=== PATIENT | female | born 1980 | race Caucasian/White ===

== ENCOUNTER 2017-05-03 21:42 | Emergency (ER) | payer OTHER ==
[~2017-05-03] VITALS: Ht 180.3 cm; Wt 88.9 kg
[2017-05-03] MEDS ORDERED: CYCLOBENZAPRINE5 MG PO (22:07)
[2017-05-03] MEDS ORDERED: ZOFRAN ODT4 MG PO (22:07)
[2017-05-03] MEDS ORDERED: FIORICET 50-301 EACH PO (22:08)
[2017-05-03] MEDS ORDERED: PRENATAL 19 CH1 EAC1 PO (22:08)
[2017-05-03] MEDS ORDERED: CLINDAMYCIN HC300 MG PO (23:35)
== END 2017-05-03 23:43 | disposition home or self-care (01) ==
LOC: ED 21:42
DX: O99.613 Diseases of the digestive system complicating pregnancy, third trimester (principal); K08.89 Other specified disorders of teeth and supporting structures; O99.513 Diseases of the respiratory system complicating pregnancy, third trimester; J20.9 Acute bronchitis, unspecified; O24.419 Gestational diabetes mellitus in pregnancy, unspecified control; Z88.0 Allergy status to penicillin; Z88.2 Allergy status to sulfonamides; Z88.8 Allergy status to other drugs, medicaments and biological substances; Z79.899 Other long term (current) drug therapy; Z3A.35 35 weeks gestation of pregnancy
CPT/HCPCS: 99283

== ENCOUNTER 2017-05-31 11:44 | Inpatient (IN) | payer OTHER ==
[~2017-05-31] VITALS: Ht 170.2 cm; Wt 90.0 kg
--- OUTSIDE RECORDS SUMMARY | ~2017-05-31 | XMS ---
Demographics + + + | Address | [address] | | | [place] [address] | + + + | Preferred Language | Unknown | + + + | Marital Status | Unknown | + + + | Confucianism Affiliation | Unknown | + + + | Race | Unknown | + + + | Ethnic Group | Unknown | + + + Author + + + | Author | [facility] | + + + | Organization | [facility] | + + + | Address | [address] | | | [place] [address] | + + + | Phone | | + + + Care Team Providers + + + + | Care Marketing Pr Intern Name | Role | Phone | + + + + Unavailable | Unavailable | + + + + PROBLEMS +---------+ + + +--------+ + + | Type | Condition | ICD9-CM | ISL16-XA | Onset | Condition | SNOMED | | | | Code | Code | Dates | Status | Code | +---------+ + + +--------+ + + | Problem | Migraines | | G43.909 | | Active | 89163060 | +---------+ + + +--------+ + + | Problem | Anxiety | | F41.9 | | Active | 63358696 | +---------+ + + +--------+ + + | Problem | Mixed | N39.46 | | | Active | [id number] | | | stress and | | [...] | Z34.90 | | | Active | 45026219 | | | for | | | | | | | | supervisio | | | | | | | | n of | | | | | | | | normal | | | | | | | | | | | | | | +---------+ + + +--------+ + + | Problem | Seizure | | G40.909 | | Active | [id number] | | | disorder | | | | | | +---------+ + + +--------+ + + ALLERGIES Unknown Allergies SOCIAL HISTORY No smoking Hx information available PLAN OF CARE VITAL SIGNS MEDICATIONS Unknown Medications RESULTS No Results PROCEDURES No Known procedures IMMUNIZATIONS No Known Immunizations"
--- OUTSIDE RECORDS SUMMARY | ~2017-05-31 | XMS ---
Demographics + + + | Address | [address] | | | [place] [address] | + + + | Preferred Language | Unknown | + + + | Marital Status | Unknown | + + + | Mormonism Affiliation | Unknown | + + + | Race | Unknown | + + + | Ethnic Group | Unknown | + + + Author + + + | Author | [facility] | + + + | Organization | [facility] | + + + | Address | [address] | | | [place] [address] | + + + | Phone | | + + + Care Team Providers + + + + | Care Recreation Officer Name | Role | Phone | + + + + Unavailable | Unavailable | + + + + PROBLEMS +---------+ + + +--------+ + + | Type | Condition | ICD9-CM | [id number] | Onset | Condition | SNOMED | | | | Code | Code | Dates | Status | Code | +---------+ + + +--------+ + + | Problem | Migraines | | G43.909 | | Active | 23230833 | +---------+ + + +--------+ + + | Problem | Anxiety | | F41.9 | | Active | 49780824 | +---------+ + + +--------+ + + | Problem | Mixed | N39.46 | | | Active | 997143604 | | | stress and | | [...] | Z34.90 | | | Active | 63842034 | | | for | | | | | | | | supervisio | | | | | | | | n of | | | | | | | | normal | | | | | | | | | | | | | | +---------+ + + +--------+ + + | Problem | Seizure | | G40.909 | | Active | [id number] | | | disorder | | | | | | +---------+ + + +--------+ + + ALLERGIES Unknown Allergies SOCIAL HISTORY No smoking Hx information available PLAN OF CARE VITAL SIGNS MEDICATIONS Unknown Medications RESULTS No Results PROCEDURES No Known procedures IMMUNIZATIONS No Known Immunizations"
[~2017-05-31 11:44] MED LIST: CLINDAMYCIN HC300 MG PO; CYCLOBENZAPRINE5 MG PO; FIORICET 50-301 EACH PO; PRENATAL 19 CH1 EAC1 PO; ZOFRAN ODT4 MG PO
== END 2017-06-01 14:20 | disposition home or self-care (01) | DRG 775 ==
LOC: FBCO 11:44 → FBC 12:00 → FBCO 06-08 11:11
PROVIDERS: ADMIT Obstetrics & Gynecology
PROC: 10E0XZZ Delivery of Products of Conception, External Approach (ICD-10-PCS; principal; 2017-05-31)
PROC: 0KQM0ZZ Repair Perineum Muscle, Open Approach (ICD-10-PCS; 2017-05-31)
PROC: 10907ZC Drainage of Amniotic Fluid, Therapeutic from Products of Conception, Via Natural or Artificial Opening (ICD-10-PCS; 2017-05-31)
PROC: 00HU33Z Insertion of Infusion Device into Spinal Canal, Percutaneous Approach (ICD-10-PCS; 2017-05-31)
PROC: 3E0R3CZ (ICD-10-PCS; 2017-05-31)
DX: O70.1 Second degree perineal laceration during delivery (principal); Z37.0 Single live birth; Z3A.38 38 weeks gestation of pregnancy; O24.429 Gestational diabetes mellitus in childbirth, unspecified control
CPT/HCPCS: 01960; 36415; 80053; 82570; 84156; 84550; 85027; 86787; 90707; J2590; J7120

== ENCOUNTER → 2017-07-18 | Emergency (ER) | payer OTHER ==
[~2017-07-18] VITALS: Ht 180.3 cm; Wt 77.1 kg
[~2017-07-18] MED LIST changes: +KEFLEX500 MG PO; +PERCOCET 5-3251 EACH PO
--- OUTSIDE RECORDS SUMMARY | 2017-07-18 20:19 | XMS ---
Demographics + + + | Address | [address] | | | [place] [address] | + + + | Preferred Language | Unknown | + + + | Marital Status | Unknown | + + + | Muslim Affiliation | Unknown | + + + | Race | Unknown | + + + | Ethnic Group | Unknown | + + + Author + + + | Author | [facility] | + + + | Organization | [facility] | + + + | Address | [address] | | | [place] [address] | + + + | Phone | | + + + Care Team Providers + + + + | Care Adult Live In Caregiver Name | Role | Phone | + + + + Unavailable | Unavailable | + + + + PROBLEMS +---------+ + + +--------+ + + | Type | Condition | ICD9-CM | UAS16-RY | Onset | Condition | SNOMED | | | | Code | Code | Dates | Status | Code | +---------+ + + +--------+ + + | Problem | Migraines | | G43.909 | | Active | 40755291 | +---------+ + + +--------+ + + | Problem | Anxiety | | F41.9 | | Active | 90912746 | +---------+ + + +--------+ + + | Problem | Mixed | N39.46 | | | Active | 387545125 | | | stress and | | | | | | | | urge | | | | | | | | urinary | | | | | | | | incontinen | | | | | | | | ce | | | | | | +---------+ + + +--------+ + + | Problem | Encounter | Z34.90 | | | Active | 04708641 | | | for | | | | | | | | supervisio | | | | | | | | n of | | | | | | | | normal | | | | | | | | | | | | | | +---------+ + + +--------+ + + | Problem | Seizure | | G40.909 | | Active | [id number] | | | disorder | | | | | | +---------+ + + +--------+ + + ALLERGIES Unknown Allergies SOCIAL HISTORY No smoking Hx information available PLAN OF CARE VITAL SIGNS MEDICATIONS Unknown Medications RESULTS No Results PROCEDURES No Known procedures IMMUNIZATIONS No Known Immunizations"
--- OUTSIDE RECORDS SUMMARY | 2017-07-18 20:19 | XMS ---
Demographics + + + | Address | [address] | | | [place] [address] | + + + | Preferred Language | Unknown | + + + | Marital Status | Unknown | + + + | Restoration Affiliation | Unknown | + + + | Race | Unknown | + + + | Ethnic Group | Unknown | + + + Author + + + | Author | [facility] | + + + | Organization | [facility] | + + + | Address | [address] | | | [place] [address] | + + + | Phone | | + + + Care Team Providers + + + + | Care Try On Baster Name | Role | Phone | + + + + Unavailable | Unavailable | + + + + PROBLEMS +---------+ + + +--------+ + + | Type | Condition | ICD9-CM | HQE04-RE | Onset | Condition | SNOMED | | | | Code | Code | Dates | Status | Code | +---------+ + + +--------+ + + | Problem | Migraines | | G43.909 | | Active | [id number] | +---------+ + + +--------+ + + | Problem | Anxiety | | F41.9 | | Active | 24176913 | +---------+ + + +--------+ + + | Problem | Seizure | | G40.909 | | Active | 112142033 | | | disorder | | | | | | +---------+ + + +--------+ + + | Problem | Mixed | N39.46 | | | Active | [id number] | | | stress and | | [...]
== END ==
LOC: ED 19:19
DX: K52.9 Noninfective gastroenteritis and colitis, unspecified (principal); Z88.0 Allergy status to penicillin; Z88.2 Allergy status to sulfonamides; Z88.7 Allergy status to serum and vaccine; Z79.899 Other long term (current) drug therapy
CPT/HCPCS: 80053; 81001; 84703; 85025; 96361; 96374; 96375; 96376; 99283; J2270; J2405; J7030

== ENCOUNTER 2017-09-15 16:36 | Emergency (ER) | payer OTHER ==
[~2017-09-15] VITALS: Ht 180.3 cm; Wt 77.1 kg
[~2017-09-15 16:36] MED LIST changes: -KEFLEX500 MG PO; -PERCOCET 5-3251 EACH PO
[2017-09-15] MEDS ORDERED: KEFLEX500 MG PO (17:24)
[2017-09-15] MEDS ORDERED: PERCOCET 5-3251 EACH PO (17:25)
== END 2017-09-15 18:06 | disposition home or self-care (01) ==
LOC: ED 16:36
DX: G43.909 Migraine, unspecified, not intractable, without status migrainosus (principal); Z87.891 Personal history of nicotine dependence; Z90.89 Acquired absence of other organs; Z88.0 Allergy status to penicillin; Z88.2 Allergy status to sulfonamides; Z88.7 Allergy status to serum and vaccine
CPT/HCPCS: 96374; 96375; 99282; J1200; J1885; J2765

== ENCOUNTER 2018-12-09 10:11 | Emergency (ER) | payer OTHER ==
[~2018-12-09] VITALS: Ht 180.3 cm; Wt 77.1 kg
[~2018-12-09 10:11] MED LIST changes: +KEFLEX500 MG PO; +PERCOCET 5-3251 EACH PO
[2018-12-09] MEDS ORDERED: CLEOCIN HCL300 MG PO (10:35)
[2018-12-09] MEDS ORDERED: ULTRAM50 MG PO (11:37)
== END 2018-12-09 12:32 | disposition home or self-care (01) ==
LOC: ED 10:11
DX: K02.9 Dental caries, unspecified (principal); Z88.0 Allergy status to penicillin; Z88.2 Allergy status to sulfonamides; Z88.7 Allergy status to serum and vaccine; Z79.899 Other long term (current) drug therapy
CPT/HCPCS: 96372; 99282-25; J1885

== ENCOUNTER 2018-12-28 19:24 | Emergency (ER) | payer OTHER ==
[~2018-12-28] VITALS: Ht 180.3 cm; Wt 74.8 kg
[~2018-12-28 19:24] MED LIST changes: +CLEOCIN HCL300 MG PO; +ULTRAM50 MG PO
--- OUTSIDE RECORDS SUMMARY | 2018-12-28 19:26 | XMS ---
PreManage Notification: JERMAN CLEMONS Security Quality Assurance Project Manager Events No recent Security Events currently on file CRITERIA MET - PDMP - [facility] - 2 Visits in 30 Days CARE PROVIDERS There are no care providers on record at this time. Livia has no Care Guidelines for this patient. [facility]: Visits indicate total known visits. ED/C VISIT TRACKING (12 MO.) 12/28/2018 19:[address] [facility] TYPE: Emergency COMPLAINT: - VOMITING 12/09/2018 10:[address] [facility] [place] TYPE: Emergency COMPLAINT: - DENTAL PAIN DIAGNOSES: - Other assisted (current) drug therapy - Allergy status to sulfonamides status - Other specified disorders of teeth and supporting structures - Allergy status to serum and vaccine status - Dental caries, unspecified - Allergy status to penicillin INPATIENT VISIT TRACKING (12 MO.) No inpatient visits to display in this time frame [id number]
== END 2018-12-28 21:50 | disposition home or self-care (01) ==
LOC: ED 19:24
DX: K52.9 Noninfective gastroenteritis and colitis, unspecified (principal); Z88.0 Allergy status to penicillin; Z88.2 Allergy status to sulfonamides; Z88.7 Allergy status to serum and vaccine; Z79.899 Other long term (current) drug therapy
CPT/HCPCS: 80053; 81001; 83690; 84703; 85025; 96361; 96374; 99284-25; J2405; J7030

== ENCOUNTER 2019-12-09 17:47 | Emergency (ER) | payer OTHER ==
[~2019-12-09] VITALS: Ht 180.3 cm; Wt 72.6 kg
--- OUTSIDE RECORDS SUMMARY | 2019-12-09 17:52 | XMS ---
PreManage Notification: JERMAN CLEMONS Security Wagon Drill Operator Events No recent Security Events currently on file CRITERIA MET - PDMP CARE PROVIDERS CHAY HEMPHILL Nurse Practitioner: 12/29/2018-Current PHONE: Unknown Livia has no Care Guidelines for this patient. [place] VISIT COUNT (12 MO.) 3 [facility] TOTAL 3 NOTE: Visits indicate total known visits. ED/UCC VISIT TRACKING (12 MO.) 12/09/2019 17:49 [facility] [place] TYPE: Emergency COMPLAINT: - TOOTH PROBLEM (EXTRACTION ON THUR) 12/28/2018 19:24 [facility] [place] TYPE: Emergency COMPLAINT: - VOMITING DIAGNOSES: - Allergy status to penicillin - Other digital photo printer (current) drug therapy - Noninfective gastroenteritis and colitis, unspecified - Allergy status to serum and vaccine status - Allergy status to sulfonamides status - Vomiting, unspecified 12/09/2018 10:11 [facility] [place] TYPE: Emergency COMPLAINT: - DENTAL PAIN DIAGNOSES: - Other half-way (current) drug therapy - Allergy status to sulfonamides status - Other specified disorders of teeth and supporting structures - Allergy status to serum and vaccine status - Dental caries, unspecified - Allergy status to penicillin INPATIENT VISIT TRACKING (12 MO.) No inpatient visits to display in this time frame [id number]
[2019-12-09] MEDS ORDERED: CLINDAMYCIN HC300 MG PO (18:05)
[2019-12-09] MEDS ORDERED: IBUPROFEN800 MG PO (18:05)
[2019-12-09] MEDS ORDERED: PERCOCET 5-3251 EACH PO (18:57)
== END 2019-12-09 19:06 | disposition home or self-care (01) ==
LOC: ED 17:47
DX: G89.18 Other acute postprocedural pain (principal); K08.89 Other specified disorders of teeth and supporting structures; Z88.0 Allergy status to penicillin; Z88.2 Allergy status to sulfonamides; Z88.7 Allergy status to serum and vaccine
CPT/HCPCS: 64400; 99283-25

== ENCOUNTER 2020-08-25 10:07 | Emergency (ER) | payer OTHER ==
[~2020-08-25] VITALS: Ht 180.3 cm; Wt 72.6 kg
[~2020-08-25 10:07] MED LIST changes: +IBUPROFEN800 MG PO
--- OUTSIDE RECORDS SUMMARY | 2020-08-25 10:10 | XMS ---
PreManage Notification: JERMAN CLEMONS Security Benefits Coordinator Events No recent Security Events currently on file CRITERIA MET - PDMP CARE PROVIDERS CHAY HEMPHILL Nurse Practitioner: 12/29/2018-Current PHONE: Unknown Livia has no Care Guidelines for this patient. [place] VISIT COUNT (12 MO.) 2 [facility] Ardon TOTAL 2 NOTE: Visits indicate total known visits. ED/UCC VISIT TRACKING (12 MO.) 08/25/2020 10:08 [facility] [place] TYPE: Emergency COMPLAINT: - TOOTH PAIN 12/09/2019 17:49 [facility] [place] TYPE: Emergency COMPLAINT: - TOOTH PROBLEM (EXTRACTION ON THUR) DIAGNOSES: - Other specified disorders of teeth and supporting structures - Other acute postprocedural pain - Jaw pain - Allergy status to sulfonamides - Allergy status to serum and vaccine - Allergy status to penicillin INPATIENT VISIT TRACKING (12 MO.) No inpatient visits to display in this time frame [id number]
[2020-08-25] MEDS ORDERED: METOPROLOL SUCC50 MG PO (10:24)
[2020-08-25] MEDS ORDERED: KLONOPIN1 MG PO (10:24)
[2020-08-25] MEDS ORDERED: HURRICAINE ONE1 EACH MM (11:24)
[2020-08-25] MEDS ORDERED: CLEOCIN HCL300 MG PO (11:24)
[2020-08-25] MEDS ORDERED: PERCOCET 5-3251 EACH PO (11:24)
== END 2020-08-25 12:20 | disposition home or self-care (01) ==
LOC: ED 10:07
DX: K08.89 Other specified disorders of teeth and supporting structures (principal); Z88.0 Allergy status to penicillin; Z88.2 Allergy status to sulfonamides; Z88.7 Allergy status to serum and vaccine; Z79.899 Other long term (current) drug therapy
CPT/HCPCS: 99282

== ENCOUNTER 2021-12-04 16:21 | Emergency (ER) | payer OTHER ==
[~2021-12-04] VITALS: Ht 180.3 cm; Wt 72.6 kg
[~2021-12-04 16:21] MED LIST changes: +HURRICAINE ONE1 EACH MM; +KLONOPIN1 MG PO; +METOPROLOL SUCC50 MG PO
--- OUTSIDE RECORDS SUMMARY | 2021-12-04 16:24 | XMS ---
PreManage Notification: JERMAN CLEMONS Security Health Insurance Sales Agent Events No recent Security Events currently on file CRITERIA MET - [place] CARE PROVIDERS ELOISE BUSH Internal Medicine 08/26/2020-Current PHONE: Unknown GISELA BALLARD Family [facility] Current PHONE: Unknown CHAY HEMPHILL Nurse Practitioner: 12/29/2018-Current PHONE: Unknown Livia has no Care Guidelines for this patient. [place] VISIT COUNT (12 MO.) 1 [facility] Ardon TOTAL 1 NOTE: Visits indicate total known visits. ED/UCC VISIT TRACKING (12 MO.) 12/04/2021 16:21 [facility] [place] TYPE: Emergency COMPLAINT: - POST OP PROBLEM INPATIENT VISIT TRACKING (12 MO.) No inpatient visits to display in this time frame [id number]
[2021-12-04] MEDS ORDERED: NAPROXEN500 MG PO (16:46)
[2021-12-04] MEDS ORDERED: LISINOPRIL20 MG PO (16:46)
[2021-12-04] MEDS ORDERED: GABAPENTIN300 MG PO (16:46)
== END 2021-12-04 21:11 | disposition home or self-care (01) ==
LOC: ED 16:21
DX: R10.2 Pelvic and perineal pain (principal); G89.18 Other acute postprocedural pain; K59.00 Constipation, unspecified; Z88.0 Allergy status to penicillin; Z88.2 Allergy status to sulfonamides; Z88.7 Allergy status to serum and vaccine; Z79.899 Other long term (current) drug therapy
CPT/HCPCS: 36415; 74177; 80048; 81001; 85025; 99284-25; J1170; J7030

== ENCOUNTER 2022-05-16 08:01 | Emergency (ER) | payer OTHER ==
[~2022-05-16] VITALS: Ht 180.3 cm; Wt 72.6 kg
[~2022-05-16 08:01] MED LIST changes: +GABAPENTIN300 MG PO; +LISINOPRIL20 MG PO; +NAPROXEN500 MG PO
--- OUTSIDE RECORDS SUMMARY | 2022-05-16 08:04 | XMS ---
PreManage Notification: JERMAN CLEMONS Security Live Truck Operator Events No recent Security Events currently on file CRITERIA MET - CLARAP CARE PROVIDERS ELOISE BUSH Internal Medicine 08/26/2020-Current PHONE: Unknown GISELA BALLARD Family [facility] Current PHONE: Unknown CHAY HEMPHILL Nurse Practitioner: 12/29/2018-Current PHONE: Unknown Livia has no Care Guidelines for this patient. [place] VISIT COUNT (12 MO.) 2 JULIAN Ardon TOTAL 2 NOTE: Visits indicate total known visits. ED/UCC VISIT TRACKING (12 MO.) 05/16/2022 08:02 [facility] [place] TYPE: Emergency COMPLAINT: - COUGH 12/04/2021 16:21 [facility] [place] TYPE: Emergency COMPLAINT: - POST OP PROBLEM DIAGNOSES: - Other wrapper hands sprayer (current) drug therapy - Lower abdominal pain, unspecified - Pelvic and perineal pain - Constipation, unspecified - Other acute postprocedural pain - Allergy status to penicillin - Allergy status to serum and vaccine - Allergy status to sulfonamides INPATIENT VISIT TRACKING (12 MO.) No inpatient visits to display in this time frame [id number]
[2022-05-16] MEDS ORDERED: VENTOLIN HFA18 GM INH (08:32)
== END 2022-05-16 08:44 | disposition home or self-care (01) ==
LOC: ED 08:01
DX: B34.9 Viral infection, unspecified (principal); Z20.822 Contact with and (suspected) exposure to COVID-19; Z88.0 Allergy status to penicillin; Z88.7 Allergy status to serum and vaccine; Z88.2 Allergy status to sulfonamides; Z79.899 Other long term (current) drug therapy
CPT/HCPCS: 99283

== ENCOUNTER 2023-01-26 08:29 | Emergency (ER) | payer OTHER ==
[~2023-01-26] VITALS: Ht 180.3 cm; Wt 75.3 kg
[~2023-01-26 08:29] MED LIST changes: +VENTOLIN HFA18 GM INH
--- OUTSIDE RECORDS SUMMARY | 2023-01-26 08:30 | XMS ---
PreManage Notification: JERMAN CLEMONS Security Pellet Press Operator Events No recent Security Events currently on file CRITERIA MET - PDMP CARE PROVIDERS -Uday- Dentist: Lawn Care Technician [facility] PHONE: [phone] ELOISE BUSH Internal Medicine 08/26/2020-Current PHONE: Unknown GISELA BALLARD Family Medicine Current PHONE: Unknown CHAY HEMPHILL Nurse Practitioner: 12/29/2018-Current PHONE: Unknown Livia has no Care Guidelines for this patient. [place] VISIT COUNT (12 MO.) 3 JULIAN Ardon TOTAL 3 NOTE: Visits indicate total known visits. ED/UCC VISIT TRACKING (12 MO.) 01/26/2023 08:29 [facility] [place] TYPE: Emergency COMPLAINT: - R FOOT PAIN 06/21/2022 13:23 [facility] [place] TYPE: Emergency COMPLAINT: - COLD SYMPTOMS 05/16/2022 08:02 [facility] [place] TYPE: Emergency COMPLAINT: - COUGH DIAGNOSES: - Allergy status to penicillin - Allergy status to sulfonamides - Viral infection, unspecified - Cough, unspecified - Other vermin exterminator (current) drug therapy - Allergy status to serum and vaccine - Contact with and (suspected) exposure to COVID-19 INPATIENT VISIT TRACKING (12 MO.) No inpatient visits to display in this time frame [id number]
[2023-01-26] MEDS ORDERED: CRUTCHES XX (08:56)
== END 2023-01-26 09:23 | disposition home or self-care (01) ==
LOC: ED 08:29
DX: S90.31XA Contusion of right foot, initial encounter (principal); W20.8XXA Other cause of strike by thrown, projected or falling object, initial encounter; Z88.0 Allergy status to penicillin; Z88.2 Allergy status to sulfonamides; Z88.7 Allergy status to serum and vaccine; Z88.8 Allergy status to other drugs, medicaments and biological substances; Z79.899 Other long term (current) drug therapy
CPT/HCPCS: 73630